=== PATIENT | female | born 1975 | race Caucasian/White ===

== ENCOUNTER → 2016-12-29 | Outpatient (CLI) | payer OTHER | END | disposition home or self-care (01) | LOC: RAD 17:07 | PROVIDERS: ATTEND Obstetrics & Gynecology | DX: O12.03 Gestational edema, third trimester (principal); O26.893 Other specified pregnancy related conditions, third trimester; M79.605 Pain in left leg; Z3A.32 32 weeks gestation of pregnancy ==

== ENCOUNTER 2017-02-23 07:53 | Inpatient (IN) | payer OTHER ==
[~2017-02-23] VITALS: Ht 177.8 cm; Wt 85.0 kg
[2017-02-23] MEDS ORDERED: OXYTOCIN 30U/ 0.9% NaCL 500ML 500 ML IV SCH ×2 (08:07→11:10)
[2017-02-23] MEDS ORDERED: NEWBORN KIT ONE (08:10)
[2017-02-23] MEDS: LACTATED RINGERS 1,000 ML IV SCH ×2 (08:25→22:51)
[2017-02-23 08:26] VITALS: BP 135/96
[2017-02-23] MEDS ORDERED: METOCLOPRAMIDE 5 MG/ML, 2ML IV ONE (08:30)
[2017-02-23] MEDS ORDERED: LACTATED RINGERS 1,000 ML IV SCH ×3 (08:30→11:10)
[2017-02-23] MEDS ORDERED: SODIUM CITRATE/CITRIC ACID 30 ML UDC PO ONE (08:30)
[2017-02-23] MEDS ORDERED: LACTATED RINGERS 1,000 ML IVBOLUS ONE (08:30)
[2017-02-23] MEDS ORDERED: folic acid (08:47)
[2017-02-23] MEDS ORDERED: probiotic (08:47)
[2017-02-23] MEDS ORDERED: BUSP5TAB2 PO (08:47)
[2017-02-23] MEDS ORDERED: ASPI-496 PO (08:47)
[2017-02-23] MEDS ORDERED: PREN1TAB60 PO (08:47)
[2017-02-23] MEDS ORDERED: ASCO10004 PO (08:47)
[2017-02-23] MEDS ORDERED: ESOM20CA31 PO (08:47)
[2017-02-23] MEDS ORDERED: morphine SULFATE/PF 0.5 MG/ML, 10ML ONE (09:53)
[2017-02-23] MEDS ORDERED: CEFAZOLIN 1,000 MG ONE (10:00)
[2017-02-23] MEDS ORDERED: ONDANSETRON 2MG/ML, 2ML ONE (10:00)
[2017-02-23] MEDS ORDERED: GLYCOPYRROLATE 0.2MG/1ML ONE (10:00)
[2017-02-23] MEDS ORDERED: PHENYLEPHRINE 10 MG/ML ONE (10:00)
[2017-02-23] MEDS ORDERED: EPHEDRINE 50 MG/ML, 1ML ONE (10:00)
[2017-02-23] MEDS ORDERED: MIDAZOLAM 1 MG/ML, 2ML ONE (10:44)
[2017-02-23] MEDS ORDERED: OXYcodone 5 MG/5 ML ORAL.SOL UDC ONE (11:25)
[2017-02-23] MEDS ORDERED: OXYTOCIN 30U/ 0.9% NaCL 500ML 500 ML ONE (11:25)
[2017-02-23] MEDS ORDERED: DIPH,PERTUSS(ACELL),TET VAC/PF NC IM-VACC PRN (11:30)
[2017-02-23] MEDS ORDERED: METOCLOPRAMIDE 5 MG/ML, 2ML IV PRN (11:30)
[2017-02-23] MEDS ORDERED: OXYcodone IR 5MG TABLET PO PRN (11:30)
[2017-02-23] MEDS ORDERED: METHYLERGONOVINE 0.2 MG/ML IM PRN (11:30)
[2017-02-23] MEDS ORDERED: morphine SULFATE 10 MG/ML, 1ML IVPush PRN ×2 (11:30)
[2017-02-23] MEDS ORDERED: ACETAMINOPHEN 325 MG TABLET PO PRN ×2 (11:30)
[2017-02-23] MEDS ORDERED: CALCIUM CARBONATE 500 MG TAB.CHEW PO PRN (11:30)
[2017-02-23] MEDS ORDERED: MISOPROSTOL 200 MCG TABLET PR PRN (11:30)
[2017-02-23] MEDS ORDERED: KETOROLAC 30 MG/1 ML ONE (11:47)
[2017-02-23] MEDS: KETOROLAC 30 MG/1 ML IV SCH ×2 (11:49→18:19)
[2017-02-23] MEDS ORDERED: OXYcodone 5 MG/5 ML ORAL.SOL UDC PO PRN (12:00)
[2017-02-23] MEDS ORDERED: FENTANYL PF 100 MCG/2ML ONE (13:21)
[2017-02-23] MEDS ORDERED: FENTANYL PF 100 MCG/2ML IVPush PRN (13:30)
[2017-02-23 13:45] VITALS: BP 121/70
[2017-02-23] MEDS: OXYcodone IR 5MG TABLET PO PRN ×2 (15:59→20:22)
[2017-02-23] MEDS: DOCUSATE 100 MG CAPSULE PO PRN (15:59)
[2017-02-23] MEDS: BUSPIRONE 5 MG TABLET PO SCH (18:35)
[2017-02-23 18:38] VITALS: BP 113/68
[2017-02-23 19:20] VITALS: BP 110/71
[2017-02-23] MEDS: ONDANSETRON 2MG/ML, 2ML IV PRN (20:52)
[2017-02-23 20:59] LABS: DIFF TOTAL CELLS COUNTED 100 CELL DIFF
[2017-02-23 21:04] LABS: VERIFY COUNTS? YES
[2017-02-24 00:01] VITALS: BP 119/75
[2017-02-24] MEDS: KETOROLAC 30 MG/1 ML IV SCH ×3 (00:30→11:30)
[2017-02-24] MEDS: OXYcodone IR 5MG TABLET PO PRN ×4 (02:00→23:07)
[2017-02-24] MEDS: ONDANSETRON 2MG/ML, 2ML IV PRN ×4 (02:27→23:07)
[2017-02-24] MEDS: DOCUSATE 100 MG CAPSULE PO PRN (08:11)
[2017-02-24] MEDS: BUSPIRONE 5 MG TABLET PO SCH ×2 (08:11→18:23)
[2017-02-24] MEDS: PRENATAL VIT/IRON/FA 1 EACH TABLET PO SCH (08:14)
[2017-02-24 08:30] VITALS: BP 113/76
[2017-02-24] MEDS: IBUPROFEN 600 MG TABLET PO PRN ×2 (12:36→18:23)
[2017-02-24 19:15] VITALS: BP 119/74
[2017-02-25] MEDS: IBUPROFEN 600 MG TABLET PO PRN ×4 (00:29→21:12)
[2017-02-25] MEDS: ONDANSETRON 2MG/ML, 2ML IV PRN (05:18)
[2017-02-25] MEDS: OXYcodone IR 5MG TABLET PO PRN ×4 (05:18→23:57)
[2017-02-25] MEDS: DOCUSATE 100 MG CAPSULE PO PRN ×2 (07:40→20:03)
[2017-02-25] MEDS: PRENATAL VIT/IRON/FA 1 EACH TABLET PO SCH (07:40)
[2017-02-25] MEDS: BUSPIRONE 5 MG TABLET PO SCH ×2 (07:43→20:03)
[2017-02-25 07:45] VITALS: BP 135/82
[2017-02-25] MEDS: ONDANSETRON ODT 4 MG PO PRN ×3 (11:26→23:22)
[2017-02-25] MEDS: SIMETHICONE 80 MG CHEW TAB PO PRN ×2 (15:09→21:12)
[2017-02-25 20:10] VITALS: BP 127/87
[2017-02-26] MEDS: IBUPROFEN 600 MG TABLET PO PRN ×3 (03:17→15:47)
[2017-02-26] MEDS: ONDANSETRON ODT 4 MG PO PRN ×2 (05:30→11:31)
[2017-02-26] MEDS: SIMETHICONE 80 MG CHEW TAB PO PRN (06:13)
[2017-02-26] MEDS: OXYcodone IR 5MG TABLET PO PRN ×2 (06:14→12:02)
[2017-02-26 08:33] VITALS: BP 117/75
[2017-02-26] MEDS: DOCUSATE 100 MG CAPSULE PO PRN (08:33)
[2017-02-26] MEDS: BUSPIRONE 5 MG TABLET PO SCH (08:35)
[2017-02-26] MEDS: PRENATAL VIT/IRON/FA 1 EACH TABLET PO SCH (09:00)
[2017-02-26] MEDS ORDERED: IBUP-1222 PO (09:14)
[2017-02-26] MEDS ORDERED: OXYC5CAP4 PO (09:14)
[2017-02-26] MEDS ORDERED: ONDA4TAB7 PO (09:15)
[2017-02-26] MEDS: MEASLES,MUMPS&RUBELLA VACC/PF 0.5 ML SQ-VACC ONE ×2 (14:30→14:54)
== END 2017-02-26 16:30 | disposition home or self-care (01) | DRG 766 ==
LOC: LDIP 08:05 → 2NW 13:34
PROVIDERS: ADMIT Obstetrics & Gynecology; ATTEND Obstetrics & Gynecology
PROC: 10D00Z1 Extraction of Products of Conception, Low, Open Approach (ICD-10-PCS; principal; 2017-02-23)
DX: O99.62 Diseases of the digestive system complicating childbirth (principal); K21.9 Gastro-esophageal reflux disease without esophagitis; O99.344 Other mental disorders complicating childbirth; F41.9 Anxiety disorder, unspecified; Z80.0 Family history of malignant neoplasm of digestive organs; Z3A.39 39 weeks gestation of pregnancy; Z37.0 Single live birth
CPT/HCPCS: 36415; 85025; 86850; 86900; 90715; J0690; J1885; J2250; J2274; J2405; J3010; J3490; Q0162; J2370; J2590; J7120